=== PATIENT | male | born 1950 | race Caucasian/White ===

== ENCOUNTER 2020-02-20 12:59 | Outpatient (CLI) | payer MEDICARE, BC ==
[~2020-02-20 12:59] MED LIST: Magnevist 469MG/ML 20 ML VIAL ONE
[2020-02-20 13:56] LABS: Estimated GFR-MDRD - POC Greater than 90
--- NOTE | 2020-02-20 14:38 | MRI ---
MRI LUMBAR SPINE NONCONTRAST: HISTORY: Lumbar radiculopathy. Right-sided low back pain that radiates down the right leg, especially at night . COMPARISON: 07/08/2016. FINDINGS: Appropriate T1 marrow signal intensity of the lumbar vertebrae. Lumbar spine vertebral body height is maintained. No fracture. There are type I Modic changes at the L3-L4 disc space. Stable straightening of the lumbar lordosis. Appropriate signal intensity in the visualized paraspinal muscles and solid organs. Conus medullaris terminates at the mid L1 level. T12-L1:Adequate disc hydration. No posterior disc abnormality. No significant central canal stenosis or significant neural foraminal narrowing. L1-L2:Disc desiccation without significant loss of disc space height. No posterior disc abnormality. No significant central canal stenosis or significant neural foraminal narrowing. L2-L3:Disc desiccation with moderate loss of disc space height. Broad-based disc bulge, ligamentum fl avum thickening and facet hypertrophy result in mild central canal stenosis. Moderate bilateral foraminal narrowing predominantly due to disc material. L3-L4:Disc desiccation with moderate to severe loss of disc space height. Broad-based disc bulge, lig ament flavum thickening and facet hypertrophy result in mild to moderate central canal stenosis. Narrowing of bilateral subarticular zones with partial obscuration of bilateral traversing L5 nerve r oots, left greater than right. Moderate right and moderate to severe left neural foraminal narrowing. L4-L5:Desiccation with moderate loss of disc space height. Broad-based disc bulge, ligamentum flavum thickening and facet hypertrophy result in mild central canal stenosis. Small amount of fluid in left facet joint. Moderate to severe right and moderate left neural foraminal narrowing. L5-S1:Minimal desiccation without significant loss of disc space height. No significant posterior dis c abnormality. No significant central canal stenosis. There is bilateral facet hypertrophy. Mild bilateral neural foraminal narrowing. IMPRESSION: 1. Degenerative changes of the lumbar spine as detailed above. 2. Type II Modic changes at L3-L4. 3. Significant neural foraminal narrowing at multiple levels. Multilevel disc desiccation is above. T here are varying degrees of central canal stenosis. Transcribed Date/Time: 02/20/2020 2:59 PM
--- NOTE | 2020-02-20 15:18 | MRI ---
MRI BRAIN AND INTERNAL AUDITORY CANALS WITH AND WITHOUT CONTRAST: Date: 02/20/2020 HISTORY: 69-year-old male with sensorineural hearing loss ICD-10:H90.5 TECHNIQUE: Multiplanar, multisequence MRI, both whole brain images and thin slices through the IACs, pre and pos t IV injection of gadolinium-based contrast agent. FINDINGS: The ventricles are normal in size and configuration. There is no major intra-axial signal abnormality , restricted diffusion, abnormal intra-axial enhancement, mass, midline shift or any other mass effect, recent intra-axial hemorrhage, or extra-axial fluid collection. There is no abnormal enhancement, mass, or morphologic abnormality, involving the cerebellopontine an gles, 7th-8th nerve complexes, internal auditory canals, cochleae, vestibules, vestibular aqueducts, or semicircular canals. IMPRESSION: Normal.
== END 2020-02-20 13:00 | disposition home or self-care (01) ==
LOC: BICMRI 12:59
PROVIDERS: ATTEND Specialist
DX: M47.26 Other spondylosis with radiculopathy, lumbar region (principal); H90.5 Unspecified sensorineural hearing loss; M48.061 Spinal stenosis, lumbar region without neurogenic claudication; M51.16 Intervertebral disc disorders with radiculopathy, lumbar region; M51.17 Intervertebral disc disorders with radiculopathy, lumbosacral region; M48.07 Spinal stenosis, lumbosacral region
CPT/HCPCS: 70553; 72148; 82565; A9579

== ENCOUNTER 2020-11-05 15:36 | Outpatient (CLI) | payer MEDICARE, BC | END 2020-11-05 15:37 | disposition home or self-care (01) | LOC: BICULT 15:36 | PROVIDERS: ATTEND Internal Medicine Cardiovascular Disease | DX: E04.2 Nontoxic multinodular goiter (principal) | CPT/HCPCS: 76536 ==

== ENCOUNTER 2022-02-10 11:09 | Outpatient (CLI) | payer MEDICARE, BC ==
[2022-02-10 12:09] LABS: #Basophils 0.1 10x3/uL (0.0-0.2); #Eosinphils 0.3 10x3/uL (0.0-0.5); #Monocytes 0.9 10x3/uL (0.0-1.1); #Neutrophils 4.5 10x3/uL (1.5-8.4); %Basophils 0.8 % (0.0-2.0); %Eosinophils 3.9 % (0.0-6.0); %Lymphocytes 23.6 % (18.0-47.0); %Monocytes 11.8 % (0.0-10.0); %Neutrophils 59.5 % (40.0-75.0); Hemoglobin 15.8 g/dL (13.5-17.5); Mean Corpuscular HGB CONC 31.7 g/dL (32.0-36.0); Mean Corpuscular Hemoglobin 29.4 pg (27.0-33.0); Mean Corpuscular Volume 92.9 fl (81.2-95.1); Mean Platelet Volume 11.1 fl (7.4-10.4); Platelet Count 161 10x3/uL (150-450); RBC Distribution Width 12.3 % (11.5-14.5); Red Blood Cell (RBC) Count 5.37 10x6/uL (4.32-5.72); White Blood Cell (WBC) Count 7.5 10x3/uL (3.5-10.5)
[2022-02-10 12:12] LABS: ALT (SGPT) 34 U/L (8-55); AST (SGOT) 25 U/L (5-34); Albumin 4.2 g/dL (3.4-4.8); Alkaline Phosphatase 66 U/L (40-110); Anion Gap 13 mmol/L (10-20); BUN (Urea Nitrogen) 12 mg/dL (8.4-25.7); Bilirubin, Total 0.8 mg/dL (0.2-1.2); Calc. Creatinine Clearance 0 mL/min (70-130); Calcium 9.7 mg/dL (7.8-10.44); Carbon Dioxide 28 mmol/L (23-31); Chloride 105 mmol/L (98-107); Globulin 2.3 g/dL (2.4-3.5); Glucose 118 mg/dL (80-115); Potassium 4.8 mmol/L (3.5-5.1); Protein, Total 6.5 g/dL (5.8-8.1); Sodium 141 mmol/L (136-145)
== END 2022-02-10 11:10 | disposition home or self-care (01) ==
LOC: LABBT 11:09
PROVIDERS: ATTEND Surgery
DX: Z01.818 Encounter for other preprocedural examination (principal); K40.20 Bilateral inguinal hernia, without obstruction or gangrene, not specified as recurrent; Z20.822 Contact with and (suspected) exposure to COVID-19
CPT/HCPCS: 80053; 85025; 93005; U0003; U0005; 93010

== ENCOUNTER 2022-02-15 06:02 | Day surgery (SDC) | payer MEDICARE, BC ==
[2022-02-14 09:54] VITALS: BMI 26.4
[2022-02-15] MEDS ORDERED: SUGAMMADEX SODIUM 200 MG/2 ML VIAL ONE (06:29)
[2022-02-15] MEDS ORDERED: Famotidine/PF 20 mg/2ml Vial ONE (06:29)
[2022-02-15] MEDS ORDERED: fentaNYL Citrate/PF 100 MCG/2 ML SYRINGE ONE (06:29)
[2022-02-15] MEDS ORDERED: Bupivacaine 0.25% HCL 30 ML VIAL ONE (06:44)
[2022-02-15] MEDS ORDERED: Lidocaine 1% w/Epinephrine 1:100K 30 ML VIAL ONE (06:44)
[2022-02-15] MEDS ORDERED: CEFAZOLIN 2 GM VIAL ONE (07:23)
[2022-02-15] MEDS ORDERED: Sodium Chloride 0.9% 100 ML ONE (07:23)
[2022-02-15] MEDS ORDERED: HYDROcodone/Acetaminophen 5/325 mg Tablet ONE (13:15)
== END 2022-02-15 13:26 | disposition home or self-care (01) ==
LOC: SDC 06:02
PROVIDERS: ATTEND Surgery
PROC: 0YUA4JZ Supplement Bilateral Inguinal Region with Synthetic Substitute, Percutaneous Endoscopic Approach (ICD-10-PCS; principal; 2022-02-15)
PROC: 8E0W4CZ Robotic Assisted Procedure of Trunk Region, Percutaneous Endoscopic Approach (ICD-10-PCS; 2022-02-15)
DX: K40.20 Bilateral inguinal hernia, without obstruction or gangrene, not specified as recurrent (principal); I10 Essential (primary) hypertension; E78.5 Hyperlipidemia, unspecified; K21.9 Gastro-esophageal reflux disease without esophagitis; M19.90 Unspecified osteoarthritis, unspecified site; Z79.82 Long term (current) use of aspirin; Z79.899 Other long term (current) drug therapy; Z95.1 Presence of aortocoronary bypass graft
CPT/HCPCS: C1781; J0690; J3490; S0020; S0028

== ENCOUNTER 2023-08-31 14:52 | Outpatient (CLI) | payer MEDICARE, BC | END 2023-08-31 14:53 | disposition home or self-care (01) | LOC: SCSMRI 14:52 | PROVIDERS: ATTEND Surgery | DX: M51.16 Intervertebral disc disorders with radiculopathy, lumbar region (principal); M51.37 Other intervertebral disc degeneration, lumbosacral region | CPT/HCPCS: 72148 ==

== ENCOUNTER 2024-03-10 08:17 | Outpatient (CLI) | payer MEDICARE, BC | END 2024-03-10 08:18 | disposition home or self-care (01) | LOC: NM 08:17 | PROVIDERS: ATTEND Radiology Radiation Oncology | DX: C61 Malignant neoplasm of prostate (principal) | CPT/HCPCS: 78306; A9503 ==